=== PATIENT | female | born 1965 | race African-American/Black ===

== ENCOUNTER 2021-10-06 05:36 | Outpatient (CLI) | payer MEDICARE ==
[~2021-10-06] VITALS: Ht 154.9 cm; Wt 102.1 kg
[2021-10-06] MEDS ORDERED: ATOR20TA66 PO (13:19)
[2021-10-06] MEDS ORDERED: ARIP2TAB20 PO (13:19)
== END 2021-10-06 13:33 | disposition home or self-care (01) ==
LOC: PREOP 05:36
PROVIDERS: ATTEND Surgery
DX: Z01.818 Encounter for other preprocedural examination (principal)

== ENCOUNTER 2021-10-18 07:07 | Day surgery (SDC) | payer MEDICARE, MEDICAID ==
[~2021-10-18] VITALS: Ht 154.9 cm; Wt 102.1 kg
[~2021-10-18 07:07] MED LIST: ARIP2TAB20 PO; ATOR20TA66 PO
[2021-10-18] MEDS ORDERED: ACET-93 PO (07:16)
[2021-10-18] MEDS ORDERED: LACTATED RINGERS 1,000 ML IV STA (07:16)
[2021-10-18] MEDS ORDERED: ONDA4TAB11 PO (07:19)
[2021-10-18] MEDS ORDERED: LORA-53 PO (07:19)
[2021-10-18] MEDS ORDERED: KETO15CR2 TP (07:19)
[2021-10-18] MEDS ORDERED: IBUP-2185 PO (07:19)
[2021-10-18 07:37] VITALS: BP 159/87
[2021-10-18] MEDS ORDERED: PROPOFOL INJECTION 50 ML IV ONE (08:14)
[2021-10-18 08:45] VITALS: BP 98/54
--- NOTE | 2021-10-18 08:46 | Discharge Inst-Simple/Standard ---
Discharge Inst-Standard Patient Instructions/Follow Up Plan of Care/Instructions/FU: 2 weeks Mayra Activity as Tolerated: Yes Discharge Diet: Regular Diet ALLAN SCOTT DO October 18, 2021 08:46
[2021-10-18 08:50] VITALS: BP 116/65
[2021-10-18 08:54] VITALS: BP 124/66
[2021-10-18 09:16] VITALS: BP 136/84
--- NOTE | 2021-10-18 12:20 | Anesthesia-General Post-Op ---
MAC Patient Condition Mental Status/LOC: Same as Preop Cardiovascular: Satisfactory Nausea/Vomiting: Absent Respiratory: Satisfactory Pain: Controlled Complications: Absent Post Op Complications Complications None Follow Up Care/Instructions Patient Instructions None needed. Anesthesiology Discharge Order Discharge Order Patient is doing well, no complaints, stable vital signs, no apparent adverse anesthesia problems. No complications reported per nursing. ANGIE KAN CRNA October 18, 2021 12:20
--- NOTE | 2021-10-18 12:28 | OPERATIVE REPORT ---
DATE OF SERVICE: 10/18/2021 PREOPERATIVE DIAGNOSIS: Screening colonoscopy. POSTOPERATIVE DIAGNOSIS: Colon polyps, rectum. PROCEDURE: Colonoscopy with hot biopsy polypectomy x2. SURGEON: Allan Nunez DO ANESTHESIA: Per [employer]AG OPERATOR. ESTIMATED BLOOD LOSS: None. COMPLICATIONS: None. INDICATIONS: The patient is a 56-year-old female needing screening colonoscopy. She understands risks and benefits of procedure and wished to proceed. Consent was signed in the chart. DESCRIPTION OF PROCEDURE: The patient is endoscopy suite, placed in left lateral recumbent position. Timeout was performed. Digital rectal exam was performed. No polyps, masses or ulcerations. Scope was inserted in the rectum and advanced all the way to cecum with minimal difficulty. Prep was adequate with irrigation and suction. Scope was slowly retracted back. No polyps, masses or ulcerations in the cecum, ascending, transverse, descending and sigmoid colon. In the rectum, two small polyps were present, which hot biopsy polypectomy was performed. Scope was retroflexed noting no other pathology. Scope was returned to its normal position, slowly withdrawn until completely removed. The patient tolerated procedure well without any complications. She was taken to recovery room in stable condition. RECOMMENDATIONS: The patient will need repeat colonoscopy in 5 years. Any issues before that be seen at that time. The patient will follow up in 2 weeks to discuss pathology results. CC: Francisca Jeter - requested, unable to deliver. Job ID: [id number] DocumentID: [id number] Dictated Date: 10/18/2021 08:45:19 Woodenware Assembler Date: 10/18/2021 12:27:07 Dictated By: ALLAN NUNEZ DO
== END 2021-10-18 09:33 | disposition home or self-care (01) ==
LOC: ENDO 07:07
PROVIDERS: ATTEND Surgery
DX: Z12.11 Encounter for screening for malignant neoplasm of colon (principal); K62.1 Rectal polyp
CPT/HCPCS: 84703

== ENCOUNTER 2022-06-21 17:10 | Emergency (ER) | payer MEDICARE, MEDICAID ==
[~2022-06-21 17:10] MED LIST changes: +ACET-93 PO; +IBUP-2185 PO; +KETO15CR2 TP; +LORA-1389 PO; +ONDA4TAB11 PO
[2022-06-21 17:33] LABS: WHITE BLOOD COUNT 6.3 10^3/uL (4.3-11.0)
[2022-06-21 17:34] LABS: HEMATOCRIT 26 % (35-52); HEMOGLOBIN 6.6 g/dL (11.5-16.0)
[2022-06-21 17:35] LABS: MEAN CORPUSCULAR HEMOGLOBIN 14 pg (25-34); MEAN CORPUSCULAR HGB CONC 25 g/dL (32-36); MEAN CORPUSCULAR VOLUME 55 fL (80-99); PLATELET COUNT 390 10^3/uL (130-400)
[2022-06-21 17:36] LABS: BASOPHILS % (AUTO) 1 % (0-10); EOSINOPHILS # (AUTO) 0.1 10^3/uL (0.0-0.3); EOSINOPHILS % (AUTO) 2 % (0-10); LYMPHOCYTES # (AUTO) 2.4 X 10^3 (1.0-4.0); LYMPHOCYTES % (AUTO) 37 % (12-44); MONOCYTES # (AUTO) 0.5 X 10^3 (0.0-1.0); MONOCYTES % (AUTO) 8 % (0-12); NEUTROPHILS # (AUTO) 3.3 X 10^3 (1.8-7.8); NEUTROPHILS % (AUTO) 52 % (42-75)
[2022-06-21 17:48] LABS: SMEAR SCAN COMMENT HYPO 2+
--- NOTE | 2022-06-21 18:17 | ED General ---
General Chief Complaint: General Problems/Pain Stated Complaint: ABDNORMAL LABS, Nursing Triage Note: Patient has been brought to ER by [facility] staff for redraw of lab. Source of Information: Patient, Caregiver, Old Records History of Present Illness Date Seen by Provider: Jun 21, 2022 Time Seen by Provider: 17:18 Initial Comments This 56-year-old woman is brought to the emergency room by her caregiver for reasons of severe anemia identified on outpatient labs. Patient is a [facility] client who has significant intellectual disability. Labs were ordered by her mental health provider and her hemoglobin was found to be 6.3. She was unable to contact her primary care provider, Juan Simental, because she was out of the office. Nurse reviewed labs with her and advised her to present to the ER for repeat labs to validate them. Caregiver notes that patient has had no change in behavior and does not seem short of breath or fatigued. There has been no known melena, hematochezia, or bloody emesis. Patient denies these symptoms but is not a reliable historian. Patient denies pain at this time. Chart was reviewed including colonoscopy from last year which revealed colorectal polyps with polypectomy x2. Allergies and Home Medications Allergies Coded Allergies: chocolate flavor (Unverified Allergy, Unknown, 10/06/21) Patient Home Medication List Home Medication List Reviewed: Yes Acetaminophen (Acetaminophen) 500 Mg Tablet, 500 MG PO PRN, (Reported) Entered as Reported by: ROBINA HEALY on 10/18/21 0716 Aripiprazole (Aripiprazole) 2 Mg Tablet, 2 MG PO DAILY, (Reported) Entered as Reported by: FABY FELIPE on 10/06/21 1319 Atorvastatin Calcium (Atorvastatin Calcium) 20 Mg Tablet, 20 MG PO DAILY, (Reported) Entered as Reported by: FAYB FELIPE on 10/06/21 1319 Ferrous Sulfate (Iron) 325 Mg (65 Mg Iron) Tablet, 325 MG PO DAILY Prescribed by: ARPAN RAMIREZ on 06/21/22 182 Ibuprofen (Ibuprofen) 200 Mg Capsule, 200 MG PO PRN, (Reported) Entered as Reported by: ROBINA HEALY on 10/18/21 0719 Ketoconazole (Ketoconazole) 2 % Cream..g., 15 GM TP PRN, (Reported) Entered as Reported by: ROBINA HEALY on 10/18/21 07 Loratadine (Loratadine) 10 Mg Tab.rapdis, 10 MG PO PRN, (Reported) Entered as Reported by: ROBINA HEALY on 10/18/21718 Ondansetron (Ondansetron Odt) 4 Mg Tab.rapdis, 4 MG PO PRN, (Reported) Entered as Reported by: ROBINA HEALY on 10/18/21718 Review of Systems Review of Systems Constitutional: no symptoms reported EENTM: no symptoms reported Respiratory: no symptoms reported Cardiovascular: no symptoms reported Gastrointestinal: see HPI Genitourinary: no symptoms reported : No Musculoskeletal: no symptoms reported Skin: no symptoms reported Psychiatric/Neurological: No Symptoms Reported Hematologic/Lymphatic: See HPI Immunological/Allergic: no symptoms reported Past Imdfivs-Bzphjw-Kvaqen Hx Patient Social History Tobacco Use?: No Use of E-Cig and/or Vaping dev: No Substance use?: No Alcohol Use?: No Immunizations Up To Date First/Initial COVID19 Vaccinat: 07/26/2020 Second COVID19 Vaccination Hero: 08/18/2020 Third COVID19 Vaccination Date: 03/14/2021 Seasonal Allergies Seasonal Allergies: No Past Medical History Surgeries: Yes Abdominal (Colonoscopy with polypectomy) Respiratory: No Cardiac: No Neurological: Yes (Intellectual disability) : No Genitourinary: No Gastrointestinal: No Musculoskeletal: No Endocrine: No HEENT: No Cancer: No Psychosocial: Yes (INTELLECUTAL DISABILITIES, UNSPECIFIED PSYCHOSIS) Anxiety, Depression Integumentary: No Blood Disorders: No Physical Exam Vital Signs Vital Signs - First Documented 06/21/22 17:24 Temp 36.5 Pulse 97 Resp 18 B/P (MAP) 191/104 (133) Pulse Ox 100 O2 Delivery Room Air Capillary Refill : Height, Weight, BMI Height: '" Weight: lbs. oz. kg; 42.55 BMI Method: General Appearance: No Apparent Distress, WD/WN HEENT: PERRL/EOMI, Normal ENT Inspection Neck: Normal Inspection Respiratory: Lungs Clear, Normal Breath Sounds, No Accessory Muscle Use Cardiovascular: Regular Rate, Rhythm, No Edema, No Murmur Gastrointestinal: Normal Bowel Sounds, Non Tender, Soft Rectal: Normal Exam, Heme Negative Stool, Other (External exam was unremarkable. Digital rectal exam was not performed as patient did not seem very tolerant of examination. She is very anxious and hollering. Hemoccult was performed on stool debris at the anus and was negative) Extremity: Normal Inspection, No Pedal Edema Neurologic/Psychiatric: Alert, No Motor/Sensory Deficits, Other (Anxious with interventions or exam) Skin: Normal Color, Warm/Dry Progress/Results/Core Measures Suspected Sepsis SIRS Temperature: Pulse: 97 Respiratory Rate: 18 Laboratory Tests 06/21/22 17:24: White Blood Count 6.3 Blood Pressure 191 /104 Mean: 133 Laboratory Tests 06/21/22 17:24: Platelet Count 390 Results/Orders Lab Results Laboratory Tests Test 06/21/22 17:24 Range/Units White Blood Count 6.3 4.3-11.0 10^3/uL Red Blood Count 4.75 3.80-5.11 10^6/uL Hemoglobin 6.6 *L 11.5-16.0 g/dL Hematocrit 26 L 35-52 % Mean Corpuscular Volume 55 L 80-99 fL Mean Corpuscular Hemoglobin 14 L 25-34 pg Mean Corpuscular Hemoglobin Concent 25 L 32-36 g/dL Red Cell Distribution Width 24.6 H 10.0-14.5 % Platelet Count 390 130-400 10^3/uL Mean Platelet Volume 9.0-12.2 fL Immature Granulocyte % (Auto) 0 % Neutrophils (%) (Auto) 52 42-75 % Lymphocytes (%) (Auto) 37 12-44 % Monocytes (%) (Auto) 8 0-12 % Eosinophils (%) (Auto) 2 0-10 % Basophils (%) (Auto) 1 0-10 % Neutrophils # (Auto) 3.3 1.8-7.8 X 10^3 Lymphocytes # (Auto) 2.4 1.0-4.0 X 10^3 Monocytes # (Auto) 0.5 0.0-1.0 X 10^3 Eosinophils # (Auto) 0.1 0.0-0.3 10^3/uL Basophils # (Auto) 0.0 0.0-0.1 10^3/uL Immature Granulocyte # (Auto) 0.0 0.0-0.1 10^3/uL Smear Scan HYPO 2+ My Orders Orders - ARPAN DENNEY MD Cbc With Automated Diff (06/21/22 17:18) Ed Iv/Invasive Line Start (06/21/22 17:18) Iron Tibc %Sat & Ferritin (06/21/22 17:37) Fecal Occult Bedside (06/21/22 17:49) Vital Signs/I&O 06/21/22 06/21/22 17:24 18:19 Temp 36.5 36.5 Pulse 97 86 Resp 18 18 B/P (MAP) 191/104 (133) 172/76 Pulse Ox 100 100 O2 Delivery Room Air Room Air Capillary Refill : Blood Pressure Mean: 133 Point of Care Testing Fecal Occult: Negative Progress Note : Time: 18:12 Progress Note Case was discussed with Dr. Garcia, physician on-call for [facility]. She will help ensure close follow-up is secured. Arrangements were made with the warehouse operations associate to have a transfusion performed at the outpatient surgery center at 0800 tomorrow morning. Order was given to the patient and faxed to the hospital. Patient is hemodynamically stable and did not have a drop in hemoglobin from yesterday's labs to today. She therefore does not need the transfusion emergently and can wait until tomorrow to have the transfusion performed on an outpatient basis. Departure Impression Primary Impression: Severe anemia Disposition: 01 HOME, SELF-CARE Condition: Stable Departure-Patient Inst. Decision time for Depature: 18:14 Referrals: NO,LOCAL PHYSICIAN (PCP) Primary Care Physician JUAN SIMENTAL APRN (Family) Primary Care Physician Patient Instructions: Anemia, Possibly From Low Iron, Adult ED Add. Discharge Instructions: A transfusion has been arranged for tomorrow morning, June 22. Present at the outpatient surgery center at [facility] in [place] at 8:00 AM. To help support hemoglobin production, take a multivitamin daily along with the iron supplement prescribed. Return to care if she develops any active bleeding, low blood pressure, significant fatigue, or any other acute worsening of condition. Follow-up at the [facility] clinic as soon as possible. Please call tomorrow morning to make an appointment. All discharge instructions reviewed with patient and/or family. Voiced understanding. Scripts Ferrous Sulfate (Iron) 325 Mg (65 Mg Iron) Tablet 325 MG PO DAILY, #30 TAB Prov: ARPAN DENNEY MD 06/21/22 Copy Copies To 1: ALLAN SCOTT DO Copies To 2: [facility] [place] ARPAN DENNEY MD Jun 21, 2022 18:17
[2022-06-21 18:19] VITALS: BP 172/76
[2022-06-21] MEDS ORDERED: FERR-84 PO (18:20)
== END 2022-06-21 18:21 | disposition home or self-care (01) ==
LOC: EDUNIT# 17:10 → ER FS 17:13
DX: D64.9 Anemia, unspecified (principal)
CPT/HCPCS: 36415; 82274; 82728; 83540; 83550; 85025

== ENCOUNTER 2022-06-22 08:21 | Outpatient (CLI) | payer MEDICARE, MEDICAID ==
[~2022-06-22] VITALS: Ht 154.9 cm; Wt 75.0 kg
[~2022-06-22 08:21] MED LIST changes: +FERR-84 PO
[2022-06-22] MEDS ORDERED: NS IV 500 ML 500 ML ONE (09:04)
[2022-06-22 10:19] VITALS: BP 176/95
[2022-06-22 10:34] VITALS: BP 148/82
[2022-06-22] MEDS ORDERED: NS IV 500 ML 500 ML IV SCH (12:30)
[2022-06-22 12:40] VITALS: BP 147/95
[2022-06-22 13:05] VITALS: BP 147/95
== END 2022-06-22 13:05 ==
LOC: SDC 08:21
PROVIDERS: ATTEND Family Medicine
DX: D64.9 Anemia, unspecified (principal)
CPT/HCPCS: 36430; 86850; 86900; 86901; 86920; P9016; 36415